=== PATIENT | female | born 1990 | race Asian ===

== ENCOUNTER 2018-08-02 16:02 | Emergency (ER) | payer MEDICAID ==
[~2018-08-02] VITALS: Ht 160 cm; Wt 51.7 kg
[2018-08-02 16:17] VITALS: Ht 160 cm; Wt 51.7 kg
[2018-08-02 19:17] LABS: UA SPECIFIC GRAVITY >=1.030 (1.005-1.035); microscopic required? YES; urine erythrocyte TRACE (NEGATIVE)
[2018-08-02 19:18] LABS: BASOPHIL % 0.6 % (0-2); PLATELET COUNT 297 x10^3mcL (130-400); RED CELL DISTRIBUTION WIDTH 14.2 % (11.5-14.5)
[2018-08-02 21:03] VITALS: BP 102/69
== END 2018-08-02 20:43 | disposition home or self-care (01) ==
LOC: ED 16:02
PROVIDERS: Emergency Medicine
DX: O20.0 Threatened abortion (principal)
CPT/HCPCS: 36415